=== PATIENT | male | born 1975 | race African-American/Black ===

== ENCOUNTER 2017-07-06 13:29 | Emergency (ER) | payer OTHER ==
[~2017-07-06] VITALS: Ht 190.5 cm; Wt 79.5 kg
[2017-07-06 15:23] VITALS: BP 131/79
== END 2017-07-06 15:25 | disposition home or self-care (01) ==
LOC: EMS 13:30
DX: F32.9 Major depressive disorder, single episode, unspecified (principal); F19.10 Other psychoactive substance abuse, uncomplicated; F17.210 Nicotine dependence, cigarettes, uncomplicated; F12.90 Cannabis use, unspecified, uncomplicated; F11.90 Opioid use, unspecified, uncomplicated
CPT/HCPCS: 99284; 99406